=== PATIENT | male | born 1965 | race Caucasian/White ===

== ENCOUNTER → 2018-04-25 | Outpatient (CLI) | payer OTHER ==
--- NOTE | 2018-04-26 05:03 | MR ---
EXAMINATION TYPE: MR lumbar spine wo/w con DATE OF EXAM: 04/25/2018 COMPARISON: 12/28/2015 HISTORY: Low Back Pain / Branden Leg Pain, Prior surgery 04/18/2016, Gadavist 12ml TECHNIQUE: Multiplanar, multisequence images of the lumbar spine were acquired utilizing 12 mL intravenous Gadav ist gadolinium contrast. The vertebra have normal alignment. There is rudimentary disc at S1-S2. There is moderate narrowing o f L5-S1 disc space. There is mild to moderate narrowing at L3-4 disc space. There is decreased signal in the disks at levels from L3 to S1. There is posterior disc herniation at L3-4 and L5-S1 without s ignificant compromise of the spinal canal. There is left-sided laminectomy at L5. There is some neura l foraminal narrowing due to disc space narrowing and facet arthropathy on the left side at L4-5 and L5-S1. There is only minimal narrowing on the right side at L4-5 and L5-S1. The sacroiliac joints robin ear intact. There is no lumbar paraspinal mass. There is no compression fracture. I see no focal bone destruction. The contrast images show no pathologic enhancement. IMPRESSION: There is posterior disc herniation at L3-4 and L5-S1. Disc herniation at L5-S1 appears decreased slig htly compared to old exam and consistent with desiccation. There is no significant change at L3-4. No spinal stenosis. There is left-sided neural foraminal narrowing at L4-5 and L5-S1.
== END | disposition home or self-care (01) ==
LOC: RADMRIMAIN 17:36
PROVIDERS: ATTEND Neurological Surgery
DX: M51.27 Other intervertebral disc displacement, lumbosacral region (principal); M99.73 Connective tissue and disc stenosis of intervertebral foramina of lumbar region; M79.604 Pain in right leg
CPT/HCPCS: 82565; 84520; 72158; 36415; A9581

== ENCOUNTER → 2018-09-27 | Outpatient (CLI) | payer OTHER ==
--- NOTE | 2018-09-27 16:23 | MR ---
EXAMINATION TYPE: MR knee LT wo con DATE OF EXAM: 09/27/2018 COMPARISON: None HISTORY: internal derangements of left knee, pain TECHNIQUE: Multiplanar, multisequence imaging of the left knee is performed without IV contrast. FINDINGS: MEDIAL MENISCUS: There is a thick horizontal area of increased signal extending to the articular surf shon of the superior anterior portion of the posterior horn medial meniscus compatible with a horizont al tear. Some posterior inferior communication with the articular surface may also be present. Anteri or horn medial meniscus appears intact. LATERAL MENISCUS: Anterior and posterior horns of the lateral meniscus appear intact. CRUCIATE LIGAMENTS: The anterior and posterior cruciate ligaments are intact and unremarkable. COLLATERAL LIGAMENTS: The medial collateral ligament and lateral collateral ligament complex are inta ct and unremarkable. EXTENSOR MECHANISM: Visualized quadriceps and patellar tendons are intact. EFFUSION: There is a moderate joint effusion. POPLITEAL CYST: No popliteal/farfan cyst. TRICOMPARTMENT SPACES: There is narrowing of the medial compartment joint space. Mild narrowing of th e lateral compartment joint space is present. CARTILAGE: There is thinning of the articular cartilage greater within the medial compartment joint s pace. BONE MARROW SIGNAL: There is increased signal within the medial aspect lateral tibial plateau. There is increased signal within the medial portion medial tibial plateau with a corresponding area of incr eased signal within the medial femoral condyle compatible with kissing contusions. OTHER: Note is made of some superficial varicosities. IMPRESSION: 1. Small contusions without evidence of fracture within the medial tibial plateau and medial femoral condyle and medial aspect of the lateral tibial plateau. 2. Moderate joint effusion. 3. Osteoarthritic degenerative change. 4. Complex tear posterior horn medial meniscus with horizontal anterior oblique posterior inferior co mponents.
== END | disposition home or self-care (01) ==
LOC: RADMRIMAIN 11:52
PROVIDERS: ATTEND Nurse Practitioner
DX: M17.12 Unilateral primary osteoarthritis, left knee (principal); S83.232A Complex tear of medial meniscus, current injury, left knee, initial encounter; S80.02XA Contusion of left knee, initial encounter

== ENCOUNTER → 2019-02-19 | Outpatient (CLI) | payer OTHER ==
--- NOTE | 2019-02-20 08:46 | MR ---
EXAMINATION TYPE: MR lumbar spine wo/w con DATE OF EXAM: 02/19/2019 COMPARISON: 04/25/2018 HISTORY: Low back pain / Right leg pain with numbness CONTRAST: 12 mL intravenous Gadavist. TECHNIQUE: Multiplanar, multisequence images of the lumbar spine were acquired. FINDINGS: Note is made of some residual disc at S1-S2. L5-S1: Broad-based disc bulge is present extending into the lateral recesses. This has mild anterior thecal sac compression. AP spinal canal stenosis is not present. Foramen are patent. Facet hypertroph y may contribute to some left foraminal narrowing. There is loss of disc height to this level. Disc d esiccation is present. Endplate changes are present compatible with Modic type II degenerative change . There appears to be interval development of a mild retrolisthesis of L5 on S1. Correlate with S1 ra dicular symptoms with suspected impingement on the right. L4-L5: Disc height is preserved. Disc desiccation is present. There is broad-based disc bulge with mi ld anterior thecal sac flattening. No AP spinal canal stenosis is present. Moderate bilateral foramin al narrowing is present. L3-L4: Mild disc space narrowing is present. Disc desiccation is present. Mild disc bulge is present with anterior thecal sac flattening. No AP spinal canal stenosis is present. Neural foramen are paten t. L2-L3: No significant disc bulge or disc herniation. No spinal canal stenosis. No foraminal stenosi s. L1-L2: No significant disc bulge or disc herniation. No spinal canal stenosis. No foraminal stenosi s. . T12-L1: No significant disc bulge or disc herniation. No spinal canal stenosis. No foraminal stenos is. . No abnormal enhancement. IMPRESSION: 1. New mild grade 1 retrolisthesis of L5 posterior on S1. 2. Increased Broad-based disc bulge and right paracentral disc herniation into the epidural space robin ears to be impinging the right S1 and contact with the left exiting S1 nerve roots. This is a change from the comparison study. 3. Broad-based disc bulging with mild anterior thecal sac compression L4-5 L3-4
== END ==
LOC: RADMRIMAIN 16:31
PROVIDERS: ATTEND Neurological Surgery
DX: M54.5 Low back pain (principal); M79.604 Pain in right leg
CPT/HCPCS: 72158; A9585

== ENCOUNTER 2019-03-16 11:55 | Emergency (ER) | payer OTHER ==
[2019-03-16 12:02] VITALS: BP 136/96; PULSE 68; RESP 18; TEMP 97.8
--- NOTE | 2019-03-16 12:25 | ED ---
General Adult HPI - General Chief complaint: Extremity Problem,Nontraumatic Stated complaint: elbow pain Time Seen by Provider: 03/16/19 12:03 Source: patient, RN notes reviewed Mode of arrival: ambulatory Limitations: no limitations - History of Present Illness Initial comments: 53-year-old male presents to the emergency department for chief complaint of left elbow pain. Patient states he noticed this yesterday. States it looks a little red and swollen. Denies any difficulty bending his elbow. Patient take it is somewhat painful when he presses on the area. Denies any fevers or chills. Denies any pain in the wrist or shoulder. States he does use his elbows a lot at work but does not recall any injuries.Patient has no other complaints at this time including shortness of breath, chest pain, abdominal pain, nausea or vomiting, headache, or visual changes. - Related Data Previous Rx's Medication Instructions Recorded Cephalexin [Keflex] 500 mg PO Q6HR 10 Days cap 03/16/19 Allergies Allergy/AdvReac Type Severity Reaction Status Date / Time No Known Allergies Allergy Verified 03/16/19 12:02 Review of Systems ROS Statement: Those systems with pertinent positive or pertinent negative responses have been documented in the HPI. ROS Other: All systems not noted in ROS Statement are negative. Past Medical History Past Medical History: Diabetes Mellitus, Hyperlipidemia, Hypertension Additional Past Medical History / Comment(s): chronic back pain History of Any Multi-Drug Resistant Organisms: None Reported Date of last positivie culture/infection: 03/22/16 MDRO Source:: RIGHT FIRST TOE Past Surgical History: Back Surgery, Hernia Repair, Orthopedic Surgery, Tonsillectomy Additional Past Surgical History / Comment(s): left knee, right arm bicep and tendon repair Past Psychological History: No Psychological Hx Reported Smoking Status: Former smoker Past Alcohol Use History: None Reported Past Drug Use History: None Reported General Exam Limitations: no limitations General appearance: alert, in no apparent distress Head exam: Present: atraumatic, normocephalic, normal inspection Eye exam: Present: normal appearance, PERRL, EOMI. Absent: scleral icterus, conjunctival injection, periorbital swelling ENT exam: Present: normal exam, mucous membranes moist Neck exam: Present: normal inspection, full ROM. Absent: tenderness, meningismus, lymphadenopathy Respiratory exam: Present: normal lung sounds bilaterally. Absent: respiratory distress, wheezes, rales, rhonchi, stridor Cardiovascular Exam: Present: regular rate, normal rhythm, normal heart sounds. Absent: systolic murmur, diastolic murmur, rubs, gallop, clicks Extremities exam: Present: full ROM (patient has full range of motion of the left elbow including full flexion and extension), tenderness (Minimal tenderness noted to the posterior and inferior left elbow), normal capillary refill (Capillary refill less than 2 seconds, radial pulse 2+ in the left upper extremity), joint swelling (Minimal generalized edema descending from the posterior elbow to the proximal ulna with mild erythema. However no focal edema, no fluctuations. no significant sswelling of the olecranon bursa). Absent: pedal edema, calf tenderness Course Vital Signs 03/16/19 11:56 Temperature 97.8 F Pulse Rate 68 Respiratory 18 Rate Blood Pressure 136/96 O2 Sat by Pulse 98 Oximetry Medical Decision Making - Medical Decision Making 53-year-old male presents for left elbow pain. Patient states it has been ongoing since yesterday. 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 No fevers. Patient is afebrile here vitals are stable. On exam he has full range of motion of the elbow without pain or difficulty. He does have mild tenderness noted of the dorsal left elbow and some mild generalized edema of the dorsal left elbow extending into the very proximal ulna. No focal edema of the olecranon bursa. No fluctuance palpated. No area that could be drained. At this time there is no evidence for an septic bursitis as he has full range of motion without significant edema. However this does appear to be likely a cellulitis. Patient will be treated with Keflex. However I did discuss returning if he has pain with movement of the elbow or fevers. Patient does agree. He will follow-up with his orthopedic surgeon Dr. Soria. He'll return here if he has any worsening symptoms. Disposition Clinical Impression: Cellulitis, Left elbow pain Disposition: HOME SELF-CARE Condition: Good Instructions (If sedation given, give patient instructions): Cellulitis (ED), Arthralgia (ED) Additional Instructions: Please take Keflex as directed. Please follow-up with primary care in 1-2 days as well as orthopedics. Please return here for having any worsening symptoms and clearing fevers, difficulty moving the elbow, or worsening swelling. Prescriptions: Cephalexin [Keflex] 500 mg PO Q6HR 10 Days cap Is patient prescribed a controlled substance at d/c from ED?: No Referrals: Sari Decker DO [Primary Care Provider] - 1-2 days Time of Disposition: 12:31
== END 2019-03-16 12:53 | disposition home or self-care (01) ==
LOC: EC 11:55
DX: L03.114 Cellulitis of left upper limb (principal); Z87.891 Personal history of nicotine dependence
CPT/HCPCS: 99283

== ENCOUNTER → 2019-09-22 | Outpatient (CLI) | payer OTHER ==
[2019-09-22 16:31] LABS: Basophils % (A) 0 %; Eosinophils # (A) 0.2 k/uL (0-0.7); Eosinophils % (A) 2 %; HCT 47.7 % (39.0-53.0); HGB 16.2 gm/dL (13.0-17.5); Lymphocytes # (A) 1.7 k/uL (1.0-4.8); Lymphocytes % (A) 18 %; MCH 31.2 pg (25.0-35.0); MCV 91.6 fL (80.0-100.0); Mean Platelet Volume 6.5; Monocytes # (A) 0.4 k/uL (0-1.0); Monocytes % (A) 4 %; Neutrophils # (A) 7.3 k/uL (1.3-7.7); Neutrophils % (A) 75 %; Platelet Count 232 k/uL (150-450); RBC 5.21 m/uL (4.30-5.90); RDW 11.8 % (11.5-15.5); WBC 9.7 k/uL (3.8-10.6)
== END | disposition home or self-care (01) ==
LOC: LABPAT 15:13
PROVIDERS: ATTEND Surgery
DX: Z01.812 Encounter for preprocedural laboratory examination (principal); Z01.818 Encounter for other preprocedural examination; K43.0 Incisional hernia with obstruction, without gangrene
CPT/HCPCS: 36415; 85025; 93005

== ENCOUNTER 2019-10-01 07:52 | Day surgery (SDC) | payer OTHER ==
[2019-09-30 09:44] VITALS: BMI 33.6
[~2019-10-01 07:52] MED LIST: DEXAMETHASONE SOD PHOSPHATE 10 MG/ML 1 ML VIAL IV ONE; HEPARIN SODIUM,PORCINE 5,000 UNIT/ML 1 ML VIAL SQ ONE; HYDROmorphone 0.5 MG/0.5 ML SYRINGE IVP PRN; LACTATED RINGERS 1,000 ML IV SCH; MIDAZOLAM 2 MG/2 ML VIAL IV PRN; ONDANSETRON 4 MG/2 ML VIAL IVP ONE; SCOPOLAMINE 1.5MG/72HR PATCH TRANSDERM ONE
[2019-10-01 08:43] LABS: Glucose,Whole Blood 115 mg/dL (75-99)
[2019-10-01] MEDS ORDERED: LIDOCAINE 1% 20 ML VIAL (10MG/ML) FOR IV START INTRADERMA ONE (08:45)
[2019-10-01] MEDS ORDERED: fentaNYL (PF) 50 MCG/ML 2 ML AMP IV ONE (08:54)
--- NOTE | 2019-10-01 09:05 | P.GSHP ---
History of Present Illness H&P Date: 10/01/19 Chief Complaint: incarcerated ventral hernia this a 53-year-old male who presents today for laparoscopic robotic-assisted repair of incarcerated ventral hernia. Patient developed a 3 cm mass just below his umbilicus. Past Medical History Past Medical History: Diabetes Mellitus, Hyperlipidemia, Hypertension, Osteoarthritis (OA) Additional Past Medical History / Comment(s): chronic back pain History of Any Multi-Drug Resistant Organisms: None Reported Date of last positivie culture/infection: 03/22/16 MDRO Source:: RIGHT FIRST TOE Past Surgical History: Back Surgery, Hernia Repair, Orthopedic Surgery, Tonsillectomy Additional Past Surgical History / Comment(s): ARTHROSCOPIC left knee, right arm bicep and tendon repair, Past Anesthesia/Blood Transfusion Reactions: Motion Sickness Smoking Status: Former smoker - Past Family History Mother Family Medical History: No Reported History Medications and Allergies Home Medications Medication Instructions Recorded Confirmed Type Atorvastatin [Lipitor] 20 mg PO DAILY 09/29/19 09/29/19 History Benazepril HCl [Lotensin] 40 mg PO DAILY 09/29/19 09/29/19 History Gabapentin [Gabapentin Oral Soln] 300 mg PO DAILY 09/29/19 09/29/19 History metFORMIN HCL [Glucophage] 500 mg PO DAILY 09/29/19 09/29/19 History Allergies Allergy/AdvReac Type Severity Reaction Status Date / Time No Known Allergies Allergy Verified 10/01/19 08:18 Surgical - Exam Vital Signs Temp Pulse Resp BP Pulse Ox 97.0 F L 58 L 16 139/80 97 10/01/19 08:25 10/01/19 08:25 10/01/19 08:25 10/01/19 08:25 10/01/19 08:25 - General well developed, well nourished, no distress - Eyes PERRL - Neck no masses - Respiratory normal expansion - Cardiovascular Rhythm: regular - Abdomen Abdomen: soft, non tender Hernia: incarcerated (3 cm incarcerated ventral hernia) Results - Labs Abnormal Lab Results - Last 24 Hours (Table) 10/01/19 Range/Units 08:42 POC Glucose (mg/dL) 115 H (75-99) mg/dL Assessment and Plan Assessment: incarcerated ventral hernia. We'll perform laparoscopic robotic-assisted repair.
[2019-10-01] MEDS ORDERED: DEXAMETHASONE SOD PHOSPHATE 4 MG/ML 1 ML VIAL ONE (09:16)
[2019-10-01] MEDS ORDERED: PROPOFOL 10 MG/ML 20 ML VIAL IV ONE (09:16)
[2019-10-01] MEDS ORDERED: SUCCINYLCHOLINE CHLORIDE 100 MG/5 ML SYR IV ONE (09:16)
[2019-10-01] MEDS ORDERED: ROCURONIUM BROMIDE 10 MG/ML 10 ML VIAL IV ONE (09:16)
[2019-10-01] MEDS ORDERED: MIDAZOLAM 2 MG/2 ML VIAL ONE (09:16)
[2019-10-01] MEDS ORDERED: ROPIVACAINE 5 MG/ML 30 ML VIAL ONE (09:16)
[2019-10-01] MEDS ORDERED: fentaNYL (PF) 50 MCG/ML 2 ML AMP ONE (09:16)
[2019-10-01] MEDS ORDERED: LIDOCAINE 1% INJ 10MG/ML (20 ML MDV) ONE (09:16)
[2019-10-01] MEDS ORDERED: NEOSTIGMINE 1 MG/ML 10 ML VIAL ONE (09:16)
[2019-10-01] MEDS ORDERED: GLYCOPYRROLATE 0.2 MG/ML 2 ML VIAL ONE (09:16)
[2019-10-01] MEDS ORDERED: KETOROLAC 30 MG/ML 1 ML VIAL ONE (09:16)
--- NOTE | 2019-10-01 09:21 | P.ANPRN ---
Procedure Note - Anesthesia - Nerve Block Performed Bilateral Transversus Abdominis Single Time Out Performed: Yes ([id number]) Date of Procedure: 10/01/19 Procedure Start Time: 08:54 Procedure Stop Time: 09:03 Location of Patient: PreOp Indication: Acute Post-Operative Pain, Requested by Surgeon Specifically requested for management of pain by : Gael Talley Sedation Type: Sedate with meaningful contact maintained Preparation: Sterile Prep, Sterile Dressing Position: Supine Catheter: None Needle Types: Pajunk Needle Gauge: 18 Ultrasound used to visualize needle placement: Yes Ultrasound used to observe medication spread: Yes Injectate: 0.5% Ropivacaine (see comment for volume) (Rop 0.5% 15cc each side with decadron 4mg each side) Blood Aspirated: Yes Pain Paresthesia on Injection Noted: Yes Resistance on Injection: Normal Image Stored and Saved: Yes Events: Uneventful and Well Tolerated
[2019-10-01] MEDS ORDERED: BUPIVACAIN-EPI 0.25%-1:200,000 30 ML VIAL SQ ONE ×3 (09:26→09:40)
[2019-10-01] MEDS ORDERED: LACTATED RINGERS 1,000 ML IV ONE (10:00)
--- NOTE | 2019-10-01 10:14 | P.OP ---
Date of Procedure: 10/01/19 Preoperative Diagnosis: incarcerated ventral hernia Postoperative Diagnosis: incarcerated ventral hernia Procedure(s) Performed: laparoscopic robotic repair of incarcerated ventral hernia Anesthesia: NEWA Surgeon: Gael Talley Estimated Blood Loss (ml): 10 Pathology: none sent Condition: stable Disposition: PACU Description of Procedure: mThe patient was placed on the operating table in the supine position. He received general anesthesia. His abdomen was prepped and draped usual fashion. Using a 5 mm optical trocar under direct visualization the peritoneal cavity was entered in the left upper quadrant. The abdomen was then insufflated. The laparoscope was placed back into the perineal cavity. Next a 8 mm robotic trocar was placed in the left lower quadrant and a 12 mm robotic trocar was placed in the left lateral position. The original 5 mm trocar was exchanged for a 8 mm robotic trocar. The patient's placed in the left side up position. And the patient was undocked the robot. The umbventral herniacal hernia was visualized. the incarcerated omentum was dissected free from the hernia.Using hook cautery the peritoneum over the umbilical hernia was excised. The fascial opening was repaired using 0V LOC suture. Next a piece of 11 cm round ventral light ST mesh was placed into the. Cavity and secured with 2 OV lock suture. The patient was undocked the robot. The needles were retrieved. The fascia of the 12 mm trocar site was closed with 0 Ethibond suture. Skin was closed interrupted 3-0 Monocryl suture. Dermabond dressings was applied. Patient top procedure well and was sent to recovery room stable condition.
[2019-10-01 10:17] VITALS: TEMP 96.8
[2019-10-01] MEDS ORDERED: HYDROcodone/APAP 5-325MG 1 EACH TAB PO ONE (11:13)
[2019-10-01 11:18] VITALS: RESP 18
[2019-10-01 11:46] VITALS: BP 125/80; PULSE 54
== END 2019-10-01 12:28 | disposition home or self-care (01) ==
LOC: OR 07:52
PROVIDERS: ATTEND Surgery
DX: K43.6 Other and unspecified ventral hernia with obstruction, without gangrene (principal); E11.40 Type 2 diabetes mellitus with diabetic neuropathy, unspecified; E78.5 Hyperlipidemia, unspecified; I10 Essential (primary) hypertension; M19.90 Unspecified osteoarthritis, unspecified site; G89.29 Other chronic pain; M54.9 Dorsalgia, unspecified; K21.9 Gastro-esophageal reflux disease without esophagitis; Z98.890 Other specified postprocedural states; Z90.89 Acquired absence of other organs; Z87.898 Personal history of other specified conditions; Z87.891 Personal history of nicotine dependence; Z79.899 Other long term (current) drug therapy; Z79.84 Long term (current) use of oral hypoglycemic drugs
CPT/HCPCS: 49653; S2900; 64488

== ENCOUNTER 2019-10-24 06:37 | Emergency (ER) | payer OTHER, BC ==
[2019-10-24] MEDS ORDERED: KETOROLAC 30 MG/ML 1 ML VIAL IVP STA (07:02)
[2019-10-24] MEDS ORDERED: FAMOTIDINE 20 MG/2 ML VIAL IV STA (07:02)
[2019-10-24] MEDS ORDERED: methylPREDNISolone SOD SUCCI 125 MG/2 ML VIAL IV STA (07:02)
[2019-10-24] MEDS ORDERED: diphenhydrAMINE 50 MG/ML 1 ML VIAL IVP STA (07:02)
--- NOTE | 2019-10-24 07:24 | ED ---
General Adult HPI - General Chief complaint: Allergic Reaction Stated complaint: Allergic Reaction Time Seen by Provider: 10/24/19 06:46 Source: patient, RN notes reviewed Mode of arrival: ambulatory Limitations: no limitations - History of Present Illness Initial comments: 53-year-old male with a past medical history of diabetes, hyperlipidemia, hypert ension presents to the emergency department for a chief complaint of rash. Patient states he has had a rash for 5 days. States it seems to be worsening. States there are raised spots on his arms and legs and they're painful and itchy. Patient did see his primary care provider and was given IM injection of steroids and antibiotics. However patient states this is worsening. Patient denies any swelling of the lips or tongue. Patient does state his testicles are swollen and painful.Patient has no other complaints at this time including shortness of breath, chest pain, abdominal pain, nausea or vomiting, headache, or visual changes. - Related Data Home Medications Medication Instructions Recorded Confirmed Atorvastatin [Lipitor] 20 mg PO DAILY 09/29/19 09/29/19 Benazepril HCl [Lotensin] 40 mg PO DAILY 09/29/19 09/29/19 Gabapentin [Gabapentin Oral Soln] 300 mg PO DAILY 09/29/19 09/29/19 metFORMIN HCL [Glucophage] 500 mg PO DAILY 09/29/19 09/29/19 Previous Rx's Medication Instructions Recorded Docusate [Colace] 100 mg PO BID #20 capsule 10/01/19 HYDROcodone/APAP 5-325MG [[place] 1 tab PO Q6HR PRN #10 tab 10/01/19 5-325] Famotidine [Pepcid] 20 mg PO BID #14 tablet 10/24/19 Loratadine [Claritin] 10 mg PO DAILY #20 tab 10/24/19 predniSONE 50 mg PO DAILY #5 tablet 10/24/19 Allergies Allergy/AdvReac Type Severity Reaction Status Date / Time No Known Allergies Allergy Verified 10/24/19 06:44 Review of Systems ROS Statement: Those systems with pertinent positive or pertinent negative responses have been documented in the HPI. ROS Other: All systems not noted in ROS Statement are negative. Past Medical History Past Medical History: Diabetes Mellitus, Hyperlipidemia, Hypertension Additional Past Medical History / Comment(s): chronic back pain History of Any Multi-Drug Resistant Organisms: None Reported Date of last positivie culture/infection: 03/22/16 MDRO Source:: RIGHT FIRST TOE Past Surgical History: Back Surgery, Hernia Repair, Orthopedic Surgery, Tonsillectomy Additional Past Surgical History / Comment(s): left knee, right arm bicep and tendon repair Past Psychological History: No Psychological Hx Reported Smoking Status: Former smoker Past Alcohol Use History: None Reported Past Drug Use History: None Reported General Exam Limitations: no limitations General appearance: alert, in no apparent distress Head exam: Present: atraumatic, normocephalic, normal inspection Eye exam: Present: normal appearance, PERRL, EOMI. Absent: scleral icterus, conjunctival injection, periorbital swelling ENT exam: Present: normal exam, normal oropharynx, mucous membranes moist, normal external ear exam Neck exam: Present: normal inspection, full ROM. Absent: tenderness, meningismus, lymphadenopathy Respiratory exam: Present: normal lung sounds bilaterally. Absent: respiratory distress, wheezes, rales, rhonchi, stridor Cardiovascular Exam: Present: regular rate, normal rhythm, normal heart sounds. Absent: systolic murmur, diastolic murmur, rubs, gallop, clicks External exam: Present: erythema (erythema of the testicles, no evidence for angioedema) Neurological exam: Present: alert Skin exam: Present: urticaria (erythematous raised circular lesions on patients arms and legs, confluent in intertriginous areas of groin. no evidence for suprainfection). Absent: petechiae Course Vital Signs 10/24/19 06:41 Temperature 99.6 F Pulse Rate 78 Respiratory 20 Rate Blood Pressure 122/78 O2 Sat by Pulse 95 Oximetry Medical Decision Making - Medical Decision Making On exam patient is urticaria noted of his arms as well as upper legs and groin. Confluent in groin area likely secondary to heat in this area. I do not see any evidence of angioedema of the testicles although there is erythema. No angioedema of the lips tongue throat. No respiratory distress. Patient denies any inciting factors. Denies starting any new medications prior to the urticaria. Patient has seen primary care was given IM injection of steroids. He is not on steroids outpatient. Patient was given IV Solu-Medrol, Pepcid, Benadryl. I recommend that he continues prednisone outpatient as well as Pepcid. Recommend he follows up with dermatology as well as primary care. He will return here if he has any worsening symptoms. 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 Take steroid and Pepcid as directed. Start pepcid tonight and steroid tomorrow. Take claritin during the day. Follow up with primary care and dermatology. Return to the emergency department if you garcia ve any worsening symptoms. Prescriptions: Loratadine [Claritin] 10 mg PO DAILY #20 tab Famotidine [Pepcid] 20 mg PO BID #14 tablet predniSONE 50 mg PO DAILY #5 tablet Is patient prescribed a controlled substance at d/c from ED?: No Referrals: Sari Decker DO [Primary Care Provider] - 1-2 days Amina Benítez MD [STAFF PHYSICIAN] - 1-2 days Time of Disposition: 07:23
[2019-10-24] MEDS ORDERED: LORazepam 2 MG/ML INJ IV STA (07:38)
[2019-10-24 07:55] VITALS: BP 138/76; PULSE 76; RESP 16; TEMP 98
== END 2019-10-24 07:53 | disposition home or self-care (01) ==
LOC: EC 06:37
DX: L50.9 Urticaria, unspecified (principal); E11.9 Type 2 diabetes mellitus without complications; E78.5 Hyperlipidemia, unspecified; I10 Essential (primary) hypertension; Z87.891 Personal history of nicotine dependence; Z79.84 Long term (current) use of oral hypoglycemic drugs; Z79.899 Other long term (current) drug therapy
CPT/HCPCS: 99282; 96374; 96375 ×4; J2060; J1200; J2930; J1885

== ENCOUNTER → 2020-12-15 | Outpatient (CLI) | payer BC ==
--- NOTE | 2020-12-15 09:03 | MR ---
EXAMINATION TYPE: MR lumbar spine wo/w con DATE OF EXAM: 12/15/2020 COMPARISON: MRI lumbar spine December 20, 2018 and older MRI. HISTORY: Low back and leg pain, history of prior surgery April 18, 2016. Pain for 25 years into left bu ttocks and thigh per patient. TECHNIQUE: Multiplanar, multisequence images of the lumbar spine is performed without and with IV contrast, util izing 11 mL intravenous Gadavist FINDINGS: Sagittal images of the lumbar spine show vertebral body height to remain satisfactory. Stab le and straightened alignment. Persistent disc desiccation L3-L4 through the L5-S1 levels. Persist an d advanced disc space narrowing with heterogeneous Modic type II endplate changes and moderate anteri or spurring L4-L5 level. Stable mild to moderate disc space narrowing and anterior spurring with hete rogeneous Modic type II endplate changes at L3-L4 level. The conus medullaris remains normal in posit ion and signal ending at L1 level. No suspicious postcontrast enhancement. Axial images at T12-L1 level shows stable tiny right paracentral disc protrusion minimally effacing a nterolateral thecal sac seen by sagittal image 9 corresponding to prior study axial image 28. Axial images at L1-L2 and L2-L3 levels show mild to moderate facet arthropathy bilaterally felt stabl e. Axial images at the L3-L4 level shows moderate broad-based posterior disc protrusion mildly facing an terior thecal sac and mild facet degenerative changes bilaterally. Mild bilateral inferior neural for aminal narrowing. No significant change from most recent prior. Axial images at L4-L5 level show [id number] facet arthropathy bilaterally. There is moderate to advanced broad disc bulge effacing the anterior thecal sac. There is moderate left-sided neural fora veronica narrowing. Right-sided neural foramina shows mild narrowing. No significant change from prior. Axial images at L5-S1 level mild/moderate facet arthropathy bilaterally. There is moderate to large b road disc bulge. Spinal canal is minimally effaced due to increased epidural fat. Severe left and mod erate right-sided neural foraminal narrowing redemonstrated. Encroachment left L5 nerve sella present sagittal image 3 and axial image 3. No significant change from prior. Stable moderate right-sided ne ural foraminal narrowing encroaching along the anterior inferior L5 nerve on sagittal images. Left-si ded laminectomy defect redemonstrated axial image 1 inferiorly. Paraspinal muscle bulk is preserved. IMPRESSION: Overall stable findings, straightening of lumbar spine with multilevel degenerative mendosa es greatest in the mid to lower lumbar levels. Most prominent findings L5-S1 level appear to be encro aching on the exiting L5 nerve. No significant change from most recent MRI.
== END ==
LOC: RADMRIMAIN 07:39
PROVIDERS: ATTEND Neurological Surgery
DX: M47.816 Spondylosis without myelopathy or radiculopathy, lumbar region (principal)
CPT/HCPCS: 72158; A9585

== ENCOUNTER → 2021-01-24 | Outpatient (CLI) | payer BC ==
--- NOTE | 2021-01-24 21:10 | XR ---
EXAMINATION TYPE: XR lumbar spine 3 views DATE OF EXAM: 01/24/2021 Comparison: None Clinical History: 55-year-old male M54.5 low back pain Findings: 5 lumbar type vertebral bodies. Postsurgical change of L3-S1 posterior and interbody fusion. On the f rontal view, there may be some prominent periscrew lucency of the S1 transpedicular screws Impression: There may be prominent periscrew lucency of the S1 transpedicular screws. Clinical significance is un clear but loosening is a possibility. Refer to the frontal view. Otherwise, uncomplicated appearance to the L3-S1 posterior and interbody fusion.
== END | disposition home or self-care (01) ==
LOC: RADXRMAIN 13:38
PROVIDERS: ATTEND Neurological Surgery
DX: M54.5 Low back pain (principal)
CPT/HCPCS: 72100

== ENCOUNTER → 2021-01-25 | Outpatient (CLI) | payer BC ==
--- NOTE | 2021-01-25 13:10 | US ---
EXAMINATION TYPE: US venous doppler duplex LE RT DATE OF EXAM: 01/25/2021 10:34 AM COMPARISON: NONE CLINICAL HISTORY: 55-year-old male M79.604 Rt leg pain. SIDE PERFORMED: Right TECHNIQUE: The lower extremity deep venous system is examined utilizing real time linear array sonog viv with graded compression, doppler sonography and color-flow sonography. FINDINGS: VESSELS IMAGED: Common Femoral Vein Deep Femoral Vein Greater Saphenous Vein * Femoral Vein Popliteal Vein Small Saphenous Vein * Proximal Calf Veins Posterior tibial veins (* superficial vessels) Right Leg: Negative for DVT IMPRESSION: No evidence for DVT within the right lower extremity.
== END | disposition home or self-care (01) ==
LOC: RADUSWWP 10:13
PROVIDERS: ATTEND Neurological Surgery
DX: M79.604 Pain in right leg (principal)

== ENCOUNTER → 2021-01-31 | Outpatient (CLI) | payer BC ==
--- NOTE | 2021-01-31 08:06 | CT ---
EXAMINATION TYPE: CT lumbar spine wo con DATE OF EXAM: 01/31/2021 7:41 AM COMPARISON: HISTORY: Paresthesia of skin. Right leg pain for 3 weeks per patient. History of back surgery December 142020. CT DLP: 1433.3 mGycm Automated exposure control for dose reduction was used. Unenhanced CT of the lumbar spine was performed. Bone and soft tissue window settings are submitted as well as coronal and sagittal reconstructions. There are 5 lumbar type vertebra identified. Lumbar spine shows stable and satisfactory alignment. Th ere are new posterior intrapedicular rods and screws running from L3 through S1 levels bilaterally. N ew metallic disc spacers noted at L3-L4 through the L5-S1 levels. Spinal canal grossly preserved. Mil [id number] multilevel anterior and lateral spurring is redemonstrated. Vertebral body heights and disc space heights above the L3 level remains satisfactory. Axial images show L1-L2 and L2-L3 levels to appear within normal limits. Axial images at L3-L4 level shows surgical change with moderate broad disc bulge on image 36. Stable mild bilateral neural foraminal narrowing. Axial images at L4-L5 level shows artifact from metallic surgical change, there appears to be some re sidual abnormal soft tissue in the right lateral recess extending from artifact from metallic disc sp acer seen best on images 44 through 47 extending to inferior right L4 level and also contiguous with right-sided facet. This metallic disc spacer is more posterior in position but is roughly 7 mm anteri or to the posterior vertebral body margins. There is residual moderate facet arthropathy with some ri ght-sided lucency and bony re-formation. This is best seen on coronal image 37. Axial images at L5-S1 level show surgical change. There is moderate to advanced facet arthropathy. Sp inal canal is preserved. There is persistent moderate bilateral neural foraminal narrowing. There are prominent but subcentimeter lymph nodes in the left periaortic space redemonstrated both si milar to prior MRI. Mild calcified plaque of overlying abdominal aorta. Paraspinal muscle bulk is irena ntained. IMPRESSION: Postsurgical change L3-S1 levels with satisfactory alignment. Concern is made at the righ t L4-L5 level where there is ovoid lucent lesion occupying right lateral recess likely affecting the central right L5 nerve, consider focal infectious process, prominent focal scarring or residual disc herniation also could account for findings. Correlate clinically. No paraspinal masses are identified. Lumbar segments are intact.
== END | disposition home or self-care (01) ==
LOC: RADCTMAIN 07:14
PROVIDERS: ATTEND Neurological Surgery
DX: R20.2 Paresthesia of skin (principal); M51.26 Other intervertebral disc displacement, lumbar region
CPT/HCPCS: 72131

== ENCOUNTER → 2021-03-10 | Outpatient (CLI) | payer BC ==
--- NOTE | 2021-03-10 13:04 | MR ---
EXAMINATION TYPE: MR lumbar spine wo/w con DATE OF EXAM: 03/10/2021 COMPARISON: Prior MRI lumbar spine December 15, 2020. CT lumbar spine January 31, 2021 HISTORY: LBP, rt leg burning/pain, surgery December 2020. TECHNIQUE: Multiplanar, multisequence images of the lumbar spine is performed without and with IV contrast, util izing 11.5 mL intravenous Gadavist FINDINGS: Sagittal images of the lumbar spine show vertebral body heights to remain satisfactory. Sli ght grade 1 retrolisthesis L5 on S1 remains present. Artifact from posterior interpedicular rods and screws and metallic disc material at L3-S1 levels is redemonstrated. Disc space heights and hydration maintained above the postsurgical levels. Spinal canal grossly preserved. Conus medullaris remains s table and satisfactory position ending mid L1 level. Bone marrow signal intensity is preserved. No oquendo spicious postcontrast enhancement. Axial images begin at labeled L1-L2 and L2-L3 levels which appear within normal limits. Axial images at L3-L4, L4-L5, and L5-S1 levels show marked artifact from surgical change. Spinal margarita l remains preserved on sagittal images. There is mild/moderate multilevel facet arthropathy seen bett er on recent CT. Artifact degradation limits evaluation of the area of CT concern right L4-L5 level o void lucent lesion. Mild/moderate facet arthropathy S1-S2 level redemonstrated. Paraspinal muscle bulk is maintained. IMPRESSION: Postsurgical changes L3-S1 level with stable and satisfactory alignment.
== END | disposition home or self-care (01) ==
LOC: RADMRIMAIN 11:25
PROVIDERS: ATTEND Neurological Surgery
DX: M79.604 Pain in right leg (principal); Z98.1 Arthrodesis status
CPT/HCPCS: 72158; A9585

== ENCOUNTER → 2021-08-26 | Outpatient (CLI) | payer BC ==
--- NOTE | 2021-08-26 09:36 | CT ---
EXAMINATION TYPE: CT lumbar spine wo con DATE OF EXAM: 08/26/2021 COMPARISON: 01/31/2021 HISTORY: 55-year-old male M5 4.5, Low back pain TECHNIQUE: Contiguous axial scanning of the lumbar spine without IV contrast. Coronal and sagittal re constructions performed. CT DLP: 955 mGycm Automated exposure control for dose reduction was used. FINDINGS: We note a transitional lumbosacral segment. This is being denoted as a lumbarized S1. Postsurgical change of L3-S1 posterior and interbody fusion. Fixed grade 1 retrolisthesis L3-L4. The orthopedic hardware appears intact. Vertebral body heights are preserved. Allowing for extensive metal hardware artifact and CT technique, no evident canal compromise. No retr opulsion of the interbody devices. On the left, there is similar moderate to severe bony neural foraminal narrowing at L5-S1. Suspect a foraminotomy on the right at L5-S1. Of note, the inferior aspect of the vertical posts indent into the posterior iliac bones. This may co ntribute to some alterations in movement at the SI joints. The previous dependent subcutaneous edema and focus of air in the subcutaneous adipose layer has reso lved. IMPRESSION: 1. TRANSITIONAL LUMBOSACRAL SEGMENT. THIS IS BEING DENOTED A LUMBARIZED S1. 2. POSTSURGICAL CHANGE OF L3-S1 POSTERIOR AND INTERBODY FUSION. FIXED GRADE 1 RETROLISTHESIS AT L3-L4 . 3. THERE IS SIMILAR MODERATE TO SEVERE BONY NEURAL FORAMINAL NARROWING ON THE LEFT AT L5-S1. QUERY HI IOR FORAMINOTOMY AT THIS LEVEL ON THE RIGHT. 4. OF NOTE, THE INFERIOR ASPECT OF THE VERTICAL POST INDENT INTO THE POSTERIOR ILIAC BONES. THIS MAY LIMIT NORMAL MOVEMENT TO SOME DEGREE AT THE SI JOINTS. CLINICALLY CORRELATE.
== END | disposition home or self-care (01) ==
LOC: RADCTMAIN 07:16
PROVIDERS: ATTEND Neurological Surgery
DX: M43.16 Spondylolisthesis, lumbar region (principal); M99.73 Connective tissue and disc stenosis of intervertebral foramina of lumbar region; Z98.1 Arthrodesis status
CPT/HCPCS: 72131

== ENCOUNTER → 2023-05-18 | Outpatient (CLI) | payer BC ==
[2023-05-18 08:53] LABS: African American GFR (CKD) >90 (>60 ml/min/1.73 sqM); Blood Urea Nitrogen 14 mg/dL (9-20); Non-African American GFR(CKD) 89 (>60 ml/min/1.73 sqM)
--- NOTE | 2023-05-18 11:02 | CT ---
EXAMINATION TYPE: CT lumbar spine wo/w con DATE OF EXAM: 05/18/2023 COMPARISON: 08/26/2021 HISTORY: 57-year-old male Back pain and leg numbness TECHNIQUE: Contiguous axial scanning of the lumbar spine performed without and with IV Contrast, victoriano ent injected with 100 mL of Isovue 300. Coronal/sagittal reconstructions performed. CT DLP: 3103.5 mGycm Automated exposure control for dose reduction was used. FINDINGS: Post surgical change of L3-S1 posterior and interbody fusion. No retropulsion of the interbody device s. No progressive endplate destruction is seen. On the right, changes result in moderate to severe neuroforaminal stenosis at L5-S1 and mild at L2-L3 and L3-L4. On the left, changes result in moderate neural foraminal stenosis at L5-S1 and mild to moderate at L2 -L3 and L3-L4. Vertebral body heights are preserved. There is a thin-walled peripherally enhancing fluid collection extending 8.5 cm craniocaudal from the anterior and right anterior aspects of L4 down through the S1 levels. This measures up to 1.1 cm thi ck and up to 4.9 cm wide. No obvious source for the fluid collection is identified. We do note that the right S1 transpedicular screw tip extends into the fluid. However, no progressive periscrew lucency is identified. An area of small focal scalloping/erosion right paracentral posterior L4 inferior endplate remains un changed from 2020. IMPRESSION: 1. THIN WALLED, PERIPHERALLY ENHANCING FLUID COLLECTION EXTENDING 8.5 CM CRANIOCAUDAL FROM THE ANTERI OR AND RIGHT ANTERIOR ASPECT OF L4 DOWN THROUGH S1. THIS MEASURES UP TO 4.9 CM WIDE AND 1.1 CM THICK. 2. INFECTIVE FLUID IS DIFFICULT TO EXCLUDE THOUGH NO OBVIOUS SOURCE OF THE INFECTION IS IDENTIFIED. W E DO NOTE THAT THE RIGHT S1 TRANSPEDICULAR SCREW TIP EXTENDS INTO THE FLUID. HOWEVER, NO PROGRESSIVE PERISCREW LUCENCY OR BONY DESTRUCTION IS IDENTIFIED. 3. PREVIOUS L3-S1 POSTERIOR AND INTERBODY FUSION, APPEARING SIMILAR TO 08/26/2021. 4. VARIABLE MILD AND MODERATE NEUROFORAMINAL STENOSES MID AND LOWER LUMBAR SPINE. MORE MODERATE TO SE SUNITHA AT L5-S1.
== END | disposition home or self-care (01) ==
LOC: RADCTMAIN 08:10
PROVIDERS: ATTEND Neurological Surgery
DX: M99.73 Connective tissue and disc stenosis of intervertebral foramina of lumbar region (principal); M43.26 Fusion of spine, lumbar region
CPT/HCPCS: 82565; 84520; 72133; 36415; Q9967

== ENCOUNTER → 2023-06-11 | Outpatient (CLI) | payer BC ==
--- NOTE | 2023-06-11 23:47 | MR ---
EXAMINATION TYPE: MR lumbar spine wo/w con DATE OF EXAM: 06/11/2023 COMPARISON: Most recent MRI March 10, 2021 and older studies. Most recent CT May 18, 2023 HISTORY: Low back pain into right side, Hx back surgery December 2020, Pt has numbness in both legs so h ad another surgery May 31, 2023 to clean out infection TECHNIQUE: Multiplanar, multisequence images of the lumbar spine is performed without and with IV contrast, util izing 10.5 mL intravenous Gadavist FINDINGS: Sagittal images of the lumbar spine show vertebral body heights to remain satisfactory. Sta ble grade 1 retrolisthesis L5 on S1 remains present. Artifact from posterior interpedicular rods and screws and metallic disc material at L3-S1 levels is redemonstrated. Disc space heights and hydration are maintained above the postsurgical levels. Spinal canal grossly preserved. Conus medullaris remai ns stable and satisfactory position ending mid L1 level. Bone marrow signal intensity is preserved. N o suspicious postcontrast enhancement. Axial images begin at labeled T12-L1 and L1-L2 levels which remain within normal limits. Axial images at L2-L3 level show artifact from surgical change. There is mstb-ne-bjfjcuji broad disc bulge mildly effacing the anterior thecal sac along with mild to moderate facet arthropathy bilateral ly. Bilateral neural foramen are patent. Axial images at L3-L4, L4-L5, and L5-S1 levels show marked artifact from surgical change. Spinal margarita l remains grossly preserved on sagittal images. There is fairly moderate multilevel facet arthropathy seen better on recent CT. Neural foramina evaluation degraded by artifact. Paraspinal muscle bulk is maintained. IMPRESSION: Postsurgical changes L3-S1 levels are redemonstrated. Alignment is stable. Some new degen erative change appreciated at L2-L3 level.
== END | disposition home or self-care (01) ==
LOC: RADMRIMAIN 19:18
PROVIDERS: ATTEND Neurological Surgery
DX: M47.816 Spondylosis without myelopathy or radiculopathy, lumbar region (principal); M79.604 Pain in right leg
CPT/HCPCS: 72158; A9585

== ENCOUNTER → 2024-02-22 | Outpatient (CLI) | payer BC, MEDICARE ==
--- NOTE | 2024-02-23 16:20 | MR ---
EXAMINATION TYPE: MR lumbar spine wo con DATE OF EXAM: 02/22/2024 8:04 PM CLINICAL INDICATION:Male, 58 years old with history of M46.27 OSTEOMYELITIS OF VERTEBRA; PHH, Low daniel k pain, infection, drainage. History of surgery COMPARISON: 06/11/2023 TECHNIQUE: Multi planar, multi sequence imaging was performed utilizing: T1-weighted, T2-weighted, a nd turbo inversion recovery imaging of the lumbar spine. IV Contrast: cc . (None if empty) FINDINGS: Alignment: The lumbar vertebral bodies have preserved heights and alignment. Cord: The conus medullaris and the distal spinal cord appear unremarkable with regards to their signa l intensity and morphology. Bones/Discs: Postsurgical changes at L2 L3 L4 and L5. Susceptibility limits evaluation. Multilevel de generation changes throughout the spine with osteophyte formation and disc space narrowing. T12-L1: No evidence of significant spinal canal stenosis or neural foraminal stenosis. L1-L2: Disc bulge and facet joint arthropathy result in mild spinal canal and mild bilateral neural f oraminal stenosis. L2-L3: Limited evaluation secondary to susceptibility artifact. The neural foramen are not well visua lized. There is moderate facet joint arthropathy. Spinal canal is patent. L3-L4: Limited evaluation secondary to susceptibility artifact. The neural foramen are not well visua lized. There is moderate facet joint arthropathy. Spinal canal is patent. L4-L5: Limited evaluation secondary to susceptibility artifact. The neural foramen appear mild to mod erately narrowed. There is moderate facet joint arthropathy. Spinal canal is patent. L5-S1: The disc has a rounded posterior morphology without significant spinal canal stenosis. Facet j oint arthropathy with mild bilateral neural foraminal stenosis. No significant spinal canal or neural foraminal stenosis in the remainder of the visualized levels. Other findings: None. IMPRESSION: Overall findings not significantly changed from prior in 2022. 1. No definitive evidence of disc herniation or significant spinal canal stenosis. 2. Postsurgical changes which limits evaluation the spinal canal and neural foramen at these levels where visualized appear patent. 3. Disc degeneration with associated osteoarthritic changes.
== END | disposition home or self-care (01) ==
LOC: RADMRIMAIN 18:51
PROVIDERS: ATTEND Family Medicine
DX: M51.36 Other intervertebral disc degeneration, lumbar region (principal); M46.27 Osteomyelitis of vertebra, lumbosacral region; M47.816 Spondylosis without myelopathy or radiculopathy, lumbar region; Z98.890 Other specified postprocedural states
CPT/HCPCS: 72148

== ENCOUNTER 2024-02-28 11:11 | Day surgery (SDC) | payer BC, MEDICARE ==
[2024-02-28 12:10] VITALS: BP 122/73; PULSE 80; RESP 16; TEMP 97.7
[2024-02-28] MEDS: LIDOCAINE 1% INJ 10MG/ML (20 ML MDV) SQ ONE (13:25)
--- NOTE | 2024-02-28 13:42 | P.OP ---
Date of Procedure: 02/28/24 Description of Procedure: Date of Procedure: Preoperative Diagnosis: Need for long-term IV antibiotic access. Postoperative Diagnosis: Same. Procedure(s) Performed: Ultrasound-guided cannulation right cephalic vein. Insertion of peripherally inserted central catheter under fluoroscopic guidance. Anesthesia: local (1% Xylocaine.) Surgeon: Carina Estimated Blood Loss (ml): 5 IV fluids (ml): 0 Urine output (ml): 0 Pathology: none sent Condition: stable Disposition: no change Indications for Procedure: Patient is a 58-year-old male with lumbar osteomyelitis patient will require long-term IV antibiotics as an outpatient patient is offered a PICC line to allow for intravenous administration of antibiotics. Description of Procedure: Patient was brought to the special procedure suite. The right upper extremity sterilely prepped and draped in usual manner. Ultrasound was utilized to identify the cephalic vein which was normally compressible free of visible thrombus. Permenant image was stored. 1% Xylocaine was utilized for local anesthesia tissues overlying the vein. Through this anesthetized area and with the aid of ultrasound a micropuncture needle was utilized to cannulate the vein. Once cannulated, Softip guidewire was advanced into the vein. The needle was withdrawn and a micropuncture sheath and dilator advanced over the guidewire. The guidewire was withdrawn and exchanged for the PICC guidewire and measured 46 cm to the cavoatrial junction. The catheter was cut to size and advanced into the cavoatrial junction without resistance. The sheath was peeled away. Blood was easily withdrawn through the catheter and the catheter was then flushed with heparinized saline solution and secured to the skin. Patient tolerated procedure well and was returned to their room in satisfactory and stable condition.
--- NOTE | 2024-02-28 14:10 | IR ---
EXAMINATION TYPE: IR cvc insert >=5 years Intraoperative/procedural fluoroscopic services were provid ed. CLINICAL INDICATION:Male, 58 years old with history of ABX, 46CM, R CEPHALIC VEIN, TIME 0.9MIN, DAP 0 .[id number]; , [facility] Total fluoroscopy time is 0.9 min. DAP: 83.57 uGym2 Please see the operative/procedural note for further details.
== END 2024-02-28 14:02 | disposition home health service (06) ==
LOC: CATHCVL 11:11
PROVIDERS: ATTEND Surgery
DX: Z45.2 Encounter for adjustment and management of vascular access device (principal); M46.26 Osteomyelitis of vertebra, lumbar region; I10 Essential (primary) hypertension; E78.5 Hyperlipidemia, unspecified; F32.A Depression, unspecified; Z79.84 Long term (current) use of oral hypoglycemic drugs; Z79.899 Other long term (current) drug therapy
CPT/HCPCS: 36573; C1751; C1769; J2001

== ENCOUNTER → 2025-03-30 | Day surgery (SDC) | payer MEDICARE, BC ==
[2025-03-26 13:01] VITALS: BMI 29.0
[~2025-03-30] MED LIST changes: +ALPRAZolam 0.25 MG TAB PO PRN; +ALPRAZolam 0.5 MG TAB PO PRN; +ATORVASTATIN 80 MG TAB PO STA; -DEXAMETHASONE SOD PHOSPHATE 10 MG/ML 1 ML VIAL IV ONE; +HEPARIN SODIUM,PORCINE (1 ML) 2,500 UNIT in SODIUM CHLORIDE 0.9% 250 ML IRRIGATION PRN; +HEPARIN SODIUM,PORCINE 10,000 UNIT in SODIUM CHLORIDE 0.9% 1,000 ML IRRIGATION PRN; -HEPARIN SODIUM,PORCINE 5,000 UNIT/ML 1 ML VIAL SQ ONE; -HYDROmorphone 0.5 MG/0.5 ML SYRINGE IVP PRN; -LACTATED RINGERS 1,000 ML IV SCH; -MIDAZOLAM 2 MG/2 ML VIAL IV PRN; +NITROGLYCERIN SL TABS 0.4 MG TAB SUBLINGUAL PRN; -ONDANSETRON 4 MG/2 ML VIAL IVP ONE; -SCOPOLAMINE 1.5MG/72HR PATCH TRANSDERM ONE
[2025-03-30] MEDS: IV FLUID CONTINUATION 1,000 ML IV ONE (08:15)
[2025-03-30] MEDS: SODIUM CHLORIDE 0.9% 1,000 ML in EMPTY BAG 1 BAG IV SCH (08:15)
[2025-03-30 08:22] VITALS: TEMP 98
[2025-03-30] MEDS: ASPIRIN 325 MG TAB PO STA (08:22)
[2025-03-30] MEDS: VERAPAMIL SYRINGE (5 MG/10 ML) INTRAARTER ONE (09:26)
[2025-03-30] MEDS: MIDAZOLAM 2 MG/2 ML VIAL IVP ONE (09:26)
[2025-03-30] MEDS: fentaNYL (PF) 50 MCG/1 ML VIAL IVP ONE (09:26)
[2025-03-30] MEDS: LIDOCAINE 1% INJ 10MG/ML (20 ML MDV) SQ ONE (09:26)
[2025-03-30] MEDS: HEPARIN SODIUM 1,000 UN/ML (10ML VL) IVP ONE (09:29)
[2025-03-30] MEDS: HEPARIN SODIUM,PORCINE (1 ML) 2,500 UNIT in SODIUM CHLORIDE 0.9% 250 ML IRRIGATION ONE (09:35)
[2025-03-30] MEDS: IOPAMIDOL-370 100ML BTL INTRATHECA ONE (09:35)
[2025-03-30] MEDS: HEPARIN SODIUM,PORCINE 10,000 UNIT in SODIUM CHLORIDE 0.9% 1,000 ML IRRIGATION ONE (09:35)
--- NOTE | 2025-03-30 09:38 | P.CARDCATH ---
Description of Procedure: PROCEDURES PERFORMED: Left heart catheterization, bilateral coronary angiography, ultrasound guided arterial access INDICATION: Abnormal stress test CONSENT:I have discussed the risks, benefits and alternative therapies for the above-mentioned procedure and for both sedation/analgesia as well as necessary blood product administration, if indicated, as they pertain to this patient. The patient has indicated understanding and acceptance of the risks and procedures discussed. PROCEDURE: After the risks, benefits and alternatives of the above mentioned procedure explained in detail with the patient, informed consent was obtained. Patient was taken to the catheterization lab and prepped and draped in usual fashion. Ultrasound guidance was used to assess for arterial access. 1% lidocaine was used to anesthetize the right radial artery. A 6-Palestinian sheath was placed in the right radial artery using modified Seldinger technique and ultrasound guidance. Left coronary angiography was performed with a 5-Palestinian JL 3.5 catheter and right coronary angiography was performed with a 5-Palestinian FR5 catheter in various views. A 5-Palestinian FR5 catheter was inserted into the left ventricle and pressure measurements were obtained. The right radial sheath was removed and a TR band was placed with hemostasis achieved. The patient to lerated the procedure well. Patient was transported back to the post catheterization holding area in stable condition. Conscious Sedation: Patient was monitored under the direct supervision of myself for conscious sedation using Versed and fentanyl for a total duration of 9 minutes HEMODYNAMICS: Aorta: 128/72 LV: 124/5, LVEDP 12 SELECTIVE CORONARY ARTERIOGRAPHY: LEFT MAIN: The left main is a large caliber vessel which bifurcates into the LAD and circumflex. There is no significant stenosis. LEFT ANTERIOR DESCENDING CORONARY ARTERY: LAD is a large caliber vessel which wraps around to the apex. There is no significant stenosis. LEFT CIRCUMFLEX CORONARY ARTERY: Left circumflex is a moderate caliber vessel without significant stenosis. RIGHT CORONARY ARTERY: The right coronary artery is a large caliber vessel which gives off a PDA and PLV branch and is the dominant vessel. There is no significant stenosis. FINAL IMPRESSION: 1. Normal coronary arteries as described above. 2. Normal left sided filling pressures PLAN: 1. Aggressive risk factor modification per most recent ACC/AHA guidelines. 2. Follow-up in the office in 1-2 weeks.
[2025-03-30 15:11] VITALS: BP 124/79; PULSE 50; RESP 14
== END ==
LOC: CATHCVL 07:50
PROVIDERS: ATTEND Internal Medicine
DX: R94.39 Abnormal result of other cardiovascular function study (principal); I10 Essential (primary) hypertension; E11.9 Type 2 diabetes mellitus without complications; E78.5 Hyperlipidemia, unspecified; I47.10 Supraventricular tachycardia, unspecified; I49.1 Atrial premature depolarization; R00.2 Palpitations; G89.29 Other chronic pain; M54.9 Dorsalgia, unspecified; Z79.84 Long term (current) use of oral hypoglycemic drugs; Z79.2 Long term (current) use of antibiotics; Z79.899 Other long term (current) drug therapy; Z87.891 Personal history of nicotine dependence; Z86.19 Personal history of other infectious and parasitic diseases; Z82.49 Family history of ischemic heart disease and other diseases of the circulatory system
CPT/HCPCS: 93458; C1769; C1894; J2250; J1644 ×3; J2003; Q9967; J3010